=== PATIENT | female | born 1950 | race Caucasian/White ===

== ENCOUNTER 2017-04-25 15:43 | Inpatient (IN) | payer MEDICARE, OTHER ==
[~2017-04-25] VITALS: Ht 154.9 cm; Wt 88.7 kg
[2017-04-25 19:07] LABS: Urine Bilirubin Negative (Negative); Urine Blood Negative /uL (Negative); Urine Color Yellow (Yellow); Urine Glucose Normal (Normal); Urine Hyaline Cast FEW /lpf (0 - 2); Urine Ketone Negative (Negative); Urine Nitrite Negative (Negative); Urine RBC 2 /hpf (0 - 4); Urine Squamous Epithelial Cell FEW /hpf (<5); Urine Urobilinogen Normal (Negative); Urine pH 5.5 (5.0-8.0)
[2017-04-25] MEDS ORDERED: ENOXAPARIN SOD 100 MG/1 ML SYRINGE SC ONE (19:15)
[2017-04-25 19:19] LABS: Basophils # (auto) 0 uL; Basophils % (auto) 0.3 % (0.0-2.0); Eosinophils # (auto) 0.1 uL; Eosinophils % (auto) 1.7 % (0.0-7.0); Hematocrit 34.1 % (36.0-46.0); Hemoglobin 11.8 g/dL (12.2-16.2); Lymphocytes # (auto) 2.3 uL; Lymphocytes % (auto) 27.2 % (10.0-50.0); Mean Corpuscular Hemoglobin 29.9 pg (28.0-32.0); Mean Corpuscular Hgb Conc. 34.6 g/dL (32.0-36.0); Mean Corpuscular Volume 86.3 fL (80.0-100.0); Mean Platelet Volume 7.6 fL (7.4-10.4); Monocytes # (auto) 0.5 uL; Monocytes % (auto) 5.8 % (0.0-12.0); Neutrophils # (auto) 5.5 uL; Platelet Count (auto) 464 10^3/uL (140-450); Red Cell Distribution Width 13.7 % (11.6-16.0); White Blood Cell 8.5 10^3/uL (4.4-10.8)
[2017-04-25 19:48] LABS: INR 0.91 (0.9-1.15); Partial Thromboplastin Time 24.7 sec (22.64-33.71); Prothrombin Time 9.9 sec (9.37-12.3)
[2017-04-25 19:51] LABS: Albumin 3.5 g/dL (3.4-5.0); BUN/Creatinine Ratio 21.3; Bilirubin, Total 0.3 mg/dL (0.2-1.0); Calcium 8.9 mg/dL (8.5-10.1); Potassium 3.6 mmol/L (3.5-5.1); Total Protein 7.7 g/dL (6.4-8.2)
[2017-04-25] MEDS ORDERED: IOHEXOL 350 MG/ML 100ML IJ ONE (20:42)
[2017-04-25] MEDS ORDERED: cefTRIAXone 1GM/50ML D5W 50 ML IV ONE (20:45)
[2017-04-25] MEDS ORDERED: TEMAZEPAM 15 MG CAP PO PRN (22:30)
[2017-04-25] MEDS ORDERED: ACETAMINOPHEN 325 MG TAB PO PRN (22:30)
[2017-04-25 23:20] VITALS: BP 179/82
[2017-04-26] VITALS (7 sets, daily range): BP systolic 125–179; BP diastolic 68–82
[2017-04-26] MEDS: HYDROcodone-ACET 5/325MG TAB PO PRN (00:13)
[2017-04-26] MEDS ORDERED: IBUP200T76 PO (01:19)
[2017-04-26] MEDS: ENOXAPARIN SOD 100 MG/1 ML SYRINGE SC SCH ×2 (08:00→20:18)
[2017-04-26] MEDS: FAMOTIDINE 20 MG TAB PO SCH ×3 (10:00→21:47)
[2017-04-26] MEDS ORDERED: WARFARIN SODIUM 5 MG TAB PO ONE (17:00)
[2017-04-26 18:11] LABS: Urine RBC None Seen /hpf (0 - 4)
[2017-04-26 18:42] LABS: Urine Bilirubin Negative (Negative); Urine Blood Negative /uL (Negative); Urine Color Yellow (Yellow); Urine Glucose Normal (Normal); Urine Ketone Negative (Negative); Urine Nitrite Negative (Negative); Urine Urobilinogen Normal (Negative); Urine pH 6.5 (5.0-8.0)
[2017-04-26] MEDS ORDERED: cefTRIAXone 1GM/50ML D5W 50 ML IV SCH (22:00)
[2017-04-27] VITALS (7 sets, daily range): BP systolic 140–174; BP diastolic 71–85
[2017-04-27 08:00] LABS: Basophils # (auto) 0 uL; Basophils % (auto) 0.4 % (0.0-2.0); Eosinophils # (auto) 0.2 uL; Eosinophils % (auto) 2.3 % (0.0-7.0); Hematocrit 33.2 % (36.0-46.0); Hemoglobin 11.4 g/dL (12.2-16.2); Lymphocytes % (auto) 29.2 % (10.0-50.0); Mean Corpuscular Hemoglobin 29.4 pg (28.0-32.0); Mean Corpuscular Hgb Conc. 34.3 g/dL (32.0-36.0); Mean Corpuscular Volume 85.6 fL (80.0-100.0); Mean Platelet Volume 7.9 fL (7.4-10.4); Monocytes # (auto) 0.5 uL; Monocytes % (auto) 7.4 % (0.0-12.0); Neutrophils # (auto) 4.1 uL; Neutrophils % (auto) 60.7 % (37.0-80.0); Platelet Count (auto) 434 10^3/uL (140-450); Red Cell Distribution Width 13.7 % (11.6-16.0); White Blood Cell 6.8 10^3/uL (4.4-10.8)
[2017-04-27 08:04] LABS: INR 0.95 (0.9-1.15); Prothrombin Time 10.3 sec (9.37-12.3)
[2017-04-27 08:52] LABS: Albumin 3.1 g/dL (3.4-5.0); BUN/Creatinine Ratio 18.6; Bilirubin, Total 0.4 mg/dL (0.2-1.0); Calcium 9.2 mg/dL (8.5-10.1); Potassium 3.5 mmol/L (3.5-5.1); Total Protein 6.8 g/dL (6.4-8.2)
[2017-04-27] MEDS: FAMOTIDINE 20 MG TAB PO SCH ×2 (09:24→22:39)
[2017-04-27] MEDS: ENOXAPARIN SOD 100 MG/1 ML SYRINGE SC SCH ×2 (09:26→20:22)
[2017-04-27] MEDS ORDERED: WARFARIN SODIUM 5 MG TAB PO ONE (17:00)
[2017-04-27] MEDS: HYDROcodone-ACET 5/325MG TAB PO PRN (17:55)
[2017-04-28] MEDS: HYDROcodone-ACET 5/325MG TAB PO PRN ×2 (00:29→06:16)
[2017-04-28] MEDS: ONDANSETRON HCL 4 MG/2 ML VIAL IV PRN ×2 (01:36→09:41)
[2017-04-28 05:07] VITALS: BP 115/51
[2017-04-28 07:54] LABS: Partial Thromboplastin Time 28.2 sec (22.64-33.71); Prothrombin Time 10.9 sec (9.37-12.3)
[2017-04-28 08:02] VITALS: BP 121/63
[2017-04-28] MEDS: ENOXAPARIN SOD 100 MG/1 ML SYRINGE SC SCH (09:40)
[2017-04-28] MEDS: FAMOTIDINE 20 MG TAB PO SCH ×2 (09:40→21:19)
[2017-04-28] MEDS: IBUPROFEN 400 MG TAB PO PRN ×2 (09:40→17:53)
[2017-04-28 11:24] VITALS: BP 136/63
[2017-04-28 16:10] VITALS: BP 113/61
[2017-04-28] MEDS ORDERED: WARFARIN SODIUM 2.5 MG TAB PO ONE (17:00)
[2017-04-28] MEDS: APIXABAN 5 MG TAB PO SCH (21:19)
[2017-04-28 22:00] VITALS: BP 132/59
[2017-04-28] MEDS ORDERED: PATIENTS OWN MEDICATION (ELIQUIS 10 MG) PO SCH (22:00)
[2017-04-29] MEDS: IBUPROFEN 400 MG TAB PO PRN ×2 (02:03→09:04)
[2017-04-29 04:55] VITALS: BP 90/46
[2017-04-29] MEDS: HYDROcodone-ACET 5/325MG TAB PO PRN (06:00)
[2017-04-29] MEDS: APIXABAN 5 MG TAB PO SCH (09:04)
[2017-04-29] MEDS: FAMOTIDINE 20 MG TAB PO SCH (09:04)
[2017-04-29 09:18] VITALS: BP 127/61
[2017-04-29] MEDS ORDERED: INDOMETHACIN 25 MG CAP PO ONE (09:30)
== END 2017-04-29 10:40 | disposition home or self-care (01) | DRG 300 ==
LOC: ER 16:02 → WEST WING 16:03
PROVIDERS: ADMIT Internal Medicine; ATTEND Internal Medicine
DX: I82.492 Acute embolism and thrombosis of other specified deep vein of left lower extremity (principal); L03.116 Cellulitis of left lower limb; N39.0 Urinary tract infection, site not specified; D63.8 Anemia in other chronic diseases classified elsewhere; E66.9 Obesity, unspecified; I51.7 Cardiomegaly; N18.2 Chronic kidney disease, stage 2 (mild); D50.9 Iron deficiency anemia, unspecified; M10.9 Gout, unspecified; M19.071 Primary osteoarthritis, right ankle and foot; Z79.899 Other long term (current) drug therapy; Z68.36 Body mass index [BMI] 36.0-36.9, adult; Z71.3 Dietary counseling and surveillance
CPT/HCPCS: 36415; 71010; 71260; 80053; 81001; 83735; 84484; 84550; 85025; 85379; 85610; 85730; 87086; 93005; 93971; 94761; 96365; 96372; J0696; J2405